=== PATIENT | female | born 1965 | race Caucasian/White ===

== ENCOUNTER 2016-10-31 18:38 | Emergency (ER) | payer MEDICAID ==
[~2016-10-31] VITALS: Ht 160 cm; Wt 59.0 kg
[2016-10-31 18:52] VITALS: Ht 160 cm; Wt 59.0 kg
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
[2016-10-31] MEDS ORDERED: HYDR-906 PO (21:45)
[2016-10-31] MEDS ORDERED: AMOX1TAB10 PO (21:45)
[2016-10-31] MEDS ORDERED: AZIT500T3 PO (21:48)
[2016-10-31 22:06] VITALS: BP 138/71; PULSE 71; RESP 18
== END 2016-10-31 22:08 | disposition home or self-care (01) ==
LOC: FTE 18:38
DX: S02.401A Maxillary fracture, unspecified side, initial encounter for closed fracture (principal); T14.8 Other injury of unspecified body region; Y04.8XXA Assault by other bodily force, initial encounter
CPT/HCPCS: 70486; Z7502